=== PATIENT | male | born 1970 | race Hispanic/Latino ===

== ENCOUNTER 2016-09-25 21:20 | Emergency (ER) | payer BC ==
[2016-09-25 21:24] VITALS: BP 142/93; PULSE 98; RESP 16; TEMP 97.6; O2SAT 100
--- NOTE | 2016-09-25 21:53 | ED PDOC ---
Lower Extremity Pain/Injury Time Seen by Provider: 09/25/16 21:24 Chief Complaint (Nursing): Lower Extremity Problem/Injury Chief Complaint (Provider): R knee injury History Per: Patient Additional Complaint(s): Pt. states earlier today while at work he twisted his R knee. Pt. states he planted his R leg to the ground and turned and he immediately felt pain to the knee. 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 Denies blunt trauma, numbness, tingling, fever. Past Medical History Reviewed: Historical Data, Nursing Documentation, Vital Signs Vital Signs: Last Vital Signs Temp 97.6 F 09/25/16 21:21 Pulse 98 H 09/25/16 21:21 Resp 16 09/25/16 21:21 BP 142/93 H 09/25/16 21:21 Pulse Ox 100 09/25/16 21:21 - Medical History PMH: Back Problems, HTN, Hypercholesterolemia - Family History Family History: States: No Known Family Hx - Home Medications Home Medications: Ambulatory Orders Medication Instructions Recorded Atorvastatin [Lipitor] 1 tab PO DAILY 06/12/15 Cyclobenzaprine HCl [Flexeril] 10 mg PO TID PRN #15 tab 06/12/15 Oxycodone HCl/Acetaminophen 1 tab PO Q6 PRN #12 tab 06/12/15 [Percocet 325 mg-5 mg] Meloxicam [Mobic] 15 mg PO DAILY PRN #30 tab 09/25/16 - Allergies Allergies/Adverse Reactions: Allergies Allergy/AdvReac Type Severity Reaction Status Date / Time ketorolac tromethamine Allergy RASH Verified 05/09/16 16:55 [From Toradol] Review of Systems ROS Statement: Except As Marked, All Systems Reviewed And Found Negative Physical Exam - Physical Exam Appears: Positive for: Well, Non-toxic, No Acute Distress Skin: Positive for: Normal Color, Warm. Negative for: Rash Extremity: Positive for: Normal ROM, Other (R knee with no tenderness, swelling , deformity, warmth, or break in skin integrity. FROM actively) - ECG O2 Sat by Pulse Oximetry: 100 - Progress ED Course And Treament: Ultram 100mg PO (pt. took 4 advils TUGBOAT PILOT). Pt. was offered knee x-ray but he declined as he believes it is more a ligamentous injury. Pt. informed that avulsion fractures can occur and bone integrity must be determined. Pt. states he will go to [facility] tomorrow and get the x-ray done there. Knee coronado dressing applied by PA. Disposition - Clinical Impression Clinical Impression: Knee injury - Patient ED Disposition Is Patient to be Admitted: No - Disposition Referrals: Spring Howard MD [Staff Provider] - Disposition: Routine/Home Disposition Time: 21:58 Condition: STABLE Additional Instructions: Follow up with Dr. Howard in 2 days for further evaluation. Prescriptions: Meloxicam [Mobic] 15 mg PO DAILY PRN #30 tab PRN Reason: pain Instructions: Knee Sprain (ED), RICE Therapy (ED) Forms: [employer] ED School/Work Excuse Print Language: GHANAIAN
== END 2016-09-25 22:16 | disposition home or self-care (01) ==
LOC: H.ER 21:20
DX: M25.561 Pain in right knee (principal)

== ENCOUNTER 2016-11-18 13:35 | Emergency (ER) | payer BC ==
--- NOTE | 2016-11-18 15:15 | CT ---
PROCEDURE: CT HEAD WITHOUT CONTRAST. HISTORY: SANTANA COMPARISON: 09/28/2014. TECHNIQUE: Axial computed tomography images were obtained through the head/brain without intravenous contrast. Coronal and sagittal reconstructed images. Radiation dose: Total exam DLP = 980.95 mGy-cm. This CT exam was performed using one or more of the following dose reduction techniques: Automated exposure control, adjustment of the mA and/or kV according to patient size, and/or use of iterative reconstruction technique. FINDINGS: HEMORRHAGE: No intracranial hemorrhage. BRAIN: No mass effect or edema. No atrophy or chronic microvascular ischemic changes. VENTRICLES: Unremarkable. No hydrocephalus. CALVARIUM: Unremarkable. PARANASAL SINUSES: Unremarkable as visualized. No significant inflammatory changes. MASTOID AIR CELLS: Unremarkable as visualized. No inflammatory changes. OTHER FINDINGS: None. IMPRESSION: No acute intracranial abnormalities. No significant findings to account for the clinical presentation. No significant interval change compared to the prior examination(s).
[2016-11-18 15:20] LABS: BASO # 0.1 K/uL (0.0-0.2); BASO % 0.7 % (0.0-2.0); EOS % 0.4 % (0.0-4.0); HEMATOCRIT 41.9 % (35.0-51.0); LYMPH # 3.6 K/uL (1.0-4.3); LYMPH % 35.7 % (20.0-40.0); MEAN CELL VOLUME 93.8 fl (80.0-94.0); MEAN CORPUSCULAR HEMOGLOBIN 31.7 pg (27.0-31.0); MEAN CORPUSCULAR HGB CONC 33.8 g/dL (33.0-37.0); MEAN PLATELET VOLUME 7.3 fl (7.2-11.7); MONO # 0.5 K/uL (0.0-0.8); MONO % 4.9 % (0.0-10.0); NEUT # 5.9 K/uL (1.8-7.0); NEUT % 58.3 % (50.0-75.0); RED CELL DISTRIBUTION WIDTH 12.8 % (11.5-14.5)
[2016-11-18 15:22] LABS: RBC URINE 5 /hpf (0-3); URINE BILIRUBIN NEGATIVE (NEGATIVE); URINE BLOOD NEGATIVE (NEGATIVE); URINE COLOR YELLOW (YELLOW); URINE GLUCOSE (UA) NEGATIVE (Normal); URINE KETONE NEGATIVE (NEGATIVE); URINE LEUKOCYTE ESTERASE NEGATIVE Leu/uL (Negative); URINE PROTEIN NEGATIVE (NEGATIVE); URINE UROBILINOGEN 0.2-1.0 mg/dL (0.2-1.0); WBC URINE 1 /hpf (0-5)
[2016-11-18 15:28] LABS: BLOOD UREA NITROGEN 18 mg/dl (9-20); CARBON DIOXIDE 25 mmol/L (22-30); CHLORIDE 109 mmol/L (98-107); GFR AFRICAN-AMERICAN > 60; GLUCOSE,RANDOM 105 mg/dL (75-110); POTASSIUM 3.9 MMOL/L (3.6-5.0); SODIUM 144 mmol/l (132-148)
[2016-11-18 15:29] LABS: ALB/GLOB RATIO 1.5 (1.0-2.1); ALKALINE PHOSPHATASE 65 U/L (38-126); ALT/SGPT 53 U/L (21-72); AST/SGOT 39 U/L (17-59); BILIRUBIN,TOTAL 0.8 mg/dl (0.2-1.3); CALCIUM 9.1 mg/dL (8.4-10.2); TOTAL PROTEIN 6.8 G/DL (6.3-8.2)
[2016-11-18 15:34] LABS: PARTIAL THROMBOPLASTIN TIME 38.7 SECONDS (23.3-32.5)
--- NOTE | 2016-11-18 15:49 | ED PDOC ---
HPI: General Adult Time Seen by Provider: 11/18/16 13:49 Chief Complaint (Nursing): High Blood Pressure Chief Complaint (Provider): Chronic Neck Pain/Headache History Per: Patient History/Exam Limitations: no limitations Onset/Duration Of Symptoms: Days (2 days) Have you had recent travel within the past 21 days to any of the following countries: [place], [place], [place] or [place]?: No Current Symptoms Are (Timing): Still Present Severity: Moderate Context: opioids withdrawal Location: chronic neck pain, head pain due to headache Additional Complaint(s): Salvatore Dougherty is a 46 year old male, with a past medical history of hypertension, who presents to the emergency department via EMS for the evaluation of chronic neck pain and a headache, that the patient has been experiencing for 2 days. Patient states that he is "not feeling well" and reports that he had an epidural injection in his neck a few days ago by his orthopedist without relief. Orthopedist referred patient to pain specialist because he is unable to give him Opioids due to new narcotic law. PMD: Dr. Mane Past Medical History Reviewed: Historical Data, Nursing Documentation, Vital Signs Vital Signs: Last Vital Signs Temp 97.8 F 11/18/16 13:39 Pulse 99 H 11/18/16 13:39 Resp 20 11/18/16 13:39 BP 152/108 H 11/18/16 16:10 Pulse Ox 95 11/18/16 16:02 - Medical History PMH: Back Problems, HTN, Hypercholesterolemia - Surgical History Surgical History: Back Surgery (spinal surgery) Other surgeries: orthopedic surgery to R knee - Family History Family History: States: No Known Family Hx - Social History Alcohol: Occasional - Home Medications Home Medications: Ambulatory Orders Medication Instructions Recorded Atorvastatin [Lipitor] 1 tab PO DAILY 06/12/15 Cyclobenzaprine HCl [Flexeril] 10 mg PO TID PRN #15 tab 06/12/15 Oxycodone HCl/Acetaminophen 1 tab PO Q6 PRN #12 tab 06/12/15 [Percocet 325 mg-5 mg] Meloxicam [Mobic] 15 mg PO DAILY PRN #30 tab 09/25/16 - Allergies Allergies/Adverse Reactions: Allergies Allergy/AdvReac Type Severity Reaction Status Date / Time ketorolac tromethamine Allergy RASH Verified 03/17/17 22:04 [From Toradol] Review of Systems ROS Statement: Except As Marked, All Systems Reviewed And Found Negative Musculoskeletal: Positive for: Neck Pain (chronic) Neurological: Positive for: Headache Physical Exam - Reviewed Nursing Documentation Reviewed: Yes Vital Signs Reviewed: Yes - Physical Exam Appears: Positive for: Non-toxic, No Acute Distress Head Exam: Positive for: ATRAUMATIC, NORMOCEPHALIC Skin: Positive for: Normal Color (piloerection), Warm, Dry Eye Exam: Positive for: Normal appearance, EOMI, PERRL Neck: Positive for: Normal (midline tenderness externally radiating down L posterior shoulder), Painless ROM Cardiovascular/Chest: Positive for: Regular Rate, Rhythm. Negative for: Murmur Respiratory: Positive for: Normal Breath Sounds. Negative for: Respiratory Distress Gastrointestinal/Abdominal: Positive for: Normal Exam, Soft. Negative for: Tenderness Back: Positive for: Normal Inspection. Negative for: L CVA Tenderness, R CVA Tenderness Extremity: Positive for: Normal ROM (full range of motion of shoulders). Negative for: Tenderness Neurologic/Psych: Positive for: Alert, Oriented - Laboratory Results Result Diagrams: 11/18/16 14:55 11/18/16 14:55 - ECG O2 Sat by Pulse Oximetry: 95 (RA) Pulse Ox Interpretation: Normal - CT Scan/US CT head Other Rad Studies (CT/US): Radiology Report Reviewed (No acute intracranial abnormalities. No significant findings to account for the clinical presentation. No significant interval change compared to the prior examination( s).) CT C-spine Other Rad Interpretation: Pending Medical Decision Making Medical Decision Makin:49 Initial Impression: Chronic neck pain and Opioid withdrawal Initial Plan: * CT Head w/o Contrast * CT Cervical Spine w/o Contrast * EKG * CBC * CMP * PT/PTT * UA * Morphine 2 mg IV * Reevaluation Scribe Attestation: Documented by Fredis Jarquin, acting as a scribe for Nanci Palmer MD. Provider Scribe Attestation: All medical record entries made by the Scribe were at my direction and personally dictated by me. I have reviewed the chart and agree that the record accurately reflects my personal performance of the history, physical exam, medical decision making, and the department course for this patient. I have also personally directed, reviewed, and agree with the discharge instructions and disposition.
--- NOTE | 2016-11-18 17:22 | CT ---
PROCEDURE: CT Cervical Spine without contrast HISTORY: <Posterior neck pain> COMPARISON: None available. TECHNIQUE: Axial computed tomography images were obtained of the cervical spine without the use of intravenous contrast. Coronal and sagittal reformatted images were created and reviewed. Radiation dose: Total exam DLP = 578.46 mGy-cm. This CT exam was performed using one or more of the following dose reduction techniques: Automated exposure control, adjustment of the mA and/or kV according to patient size, and/or use of iterative reconstruction technique. FINDINGS: VERTEBRAE: The current study reveals no acute compression fractures no retropulsed fragments The vertebral bodies exhibit normal stature. There is slight straightening of the normal cervical lordosis which could be due to patient positioning gantry however underlying element of mild muscle spasm may contribute. Vertebral bodies otherwise exhibit normal alignment. Facets normally aligned. DISCS/SPINAL CANAL/NEURAL FORAMINA: There is mild degenerative spondylosis at the C5-C6 level. Changes include mild disc space narrowing with size small broad-based osteophytic ridge disc bulge complex a asymmetrically larger on the left than the right which results in mild compression of the ventral surface of the thecal sac and possibly some mild cord compression. Central canal is marginal to minimally narrowed. The uncovertebral and joints are hypertrophic. Facet joints also mildly hypertrophic right greater than left. Exit foramina are stenotic bilaterally. At the C4-C5 level, there is a small central and bilateral focal disc herniation that indents the ventral surface of the thecal sac and spinal cord. The overall central bony canal the does appear adequate. Minimal degenerative squaring of the uncovertebral joints. Facets also mildly hypertrophic with what appear to represent mild subchondral cystic changes along the C4-C5 facet joints. At the C3-C4 level, there is adequate disc height. Small -medium-sized central and bilateral (asymmetrically larger on the left and right) results in moderate at canal narrowing and cord compression. The facets also mildly hypertrophic. Uncovertebral joints exhibit minimal degenerative squaring. The left exit foramen is narrowed. Right exit foramen appears adequate. At the C2-C3 level, there is also adequate disc height. Small medium-sized central and bilateral disc bulge larger on the left than right results in mild canal narrowing and compression of the ventral surface of the thecal sac reaching and minimally if at all flattening the ventral surface of the spinal cord more so on the left-side. The facet joints also mildly hypertrophic. Exit foramina appear marginal to adequate. PARASPINAL SOFT TISSUES: Paraspinal soft tissues grossly unremarkable. OTHER FINDINGS: Lung apices are clear. IMPRESSION: No acute fractures. Multilevel degenerative spondylosis with varying sized small to medium-sized disc bulge and/or disc herniations that results in mild canal narrowing and cord compression at several levels, the largest of which is located at the C3-C4 level as detailed above.
--- NOTE | 2016-11-18 18:19 | ED PDOC ---
- Laboratory Results Result Diagrams: 11/18/16 14:55 11/18/16 14:55 - ECG O2 Sat by Pulse Oximetry: 95 (RA) Medical Decision Making Medical Decision Making: Recd on endorsement from Dr Palmer pending re-eval and CT neck. CT CSpine: Accession No. : [id number] Patient Name / ID : MARY Callahan / [id number] Exam Date : 11/18/2016 14:32:57 ( Approved ) Study Comment : Sex / Age : M / 46Y Creator : Jagjit Olivera MD Dictator : Jagjit Olivera MD Arts Therapist : Director Of Student Financial Aid : Jagjit Olivera MD Approver2 : Report Date : 11/18/2016 15:13:40 My Comment : PROCEDURE: CT HEAD WITHOUT CONTRAST. HISTORY: SANTANA COMPARISON: 09/28/2014. TECHNIQUE: Axial computed tomography images were obtained through the head/brain without intravenous contrast. Coronal and sagittal reconstructed images. Radiation dose: Total exam DLP = 980.95 mGy-cm. This CT exam was performed using one or more of the following dose reduction techniques: Automated exposure control, adjustment of the mA and/or kV according to patient size, and/or use of iterative reconstruction technique. FINDINGS: HEMORRHAGE: No intracranial hemorrhage. BRAIN: No mass effect or edema. No atrophy or chronic microvascular ischemic changes. VENTRICLES: Unremarkable. No hydrocephalus. CALVARIUM: Unremarkable. PARANASAL SINUSES: Unremarkable as visualized. No significant inflammatory changes. MASTOID AIR CELLS: Unremarkable as visualized. No inflammatory changes. OTHER FINDINGS: None. IMPRESSION: No acute intracranial abnormalities. No significant findings to account for the clinical presentation. No significant interval change compared to the prior examination(s). Discussed w patient, BP mildly elevated 152/96. Diet modification and recheck BP in 2 days. May need BP meds but also in pain currently thus defer initiation to PMD. Discussed with his pharmacy, only dilaudid covered by insurance at this time, Rx 8 pills dilaudid 2mg. Discussed addictive potential w patient, Rx database reviewed earlier by Dr Palmer, and discussed w his pharmacist at [phone]. Disposition Counseled Patient/Family Regarding: Studies Performed, Diagnosis, Need For Followup, Rx Given - Clinical Impression Clinical Impression: Neck pain - POA Present On Arrival: None - Disposition Referrals: Darrius Hernandez MD [Medical Doctor] - Disposition: Routine/Home Disposition Time: 18:20 Condition: STABLE Additional Instructions: Return to ER for any worse or new symptoms. Take medications as directed. Seek painter and decorator apprentice for ongoing pain management. Prescriptions: HYDROmorphone [Dilaudid] 2 mg PO BID PRN #8 tab PRN Reason: Pain, Severe (8-10) Instructions: Cervical Radiculopathy (ED) Forms: [employer] ([place]i)
[2016-11-18 18:31] VITALS: BP 163/99; PULSE 77; RESP 18; TEMP 97.9; O2SAT 99
--- NOTE | 2016-11-19 10:15 | CARD ---
APPROVED REPORT EKG Measurement Heart [id number] <Conclusion> Normal sinus rhythm Abnormal QRS-T angle, consider primary T wave abnormality Abnormal ECG
== END 2016-11-18 18:27 | disposition home or self-care (01) ==
LOC: H.ER 13:35
DX: M54.12 Radiculopathy, cervical region (principal); R51 Headache; I10 Essential (primary) hypertension
CPT/HCPCS: 70450; 72125; 80053; 81003; 85025; 85610; 85730; 93005; 96374; 96376; 99285; J2270